=== PATIENT | female | born 1985 | race Caucasian/White ===

== ENCOUNTER 2017-04-26 23:19 | Emergency (ER) | payer SELFPAY ==
[~2017-04-26] VITALS: Ht 175.3 cm; Wt 94.7 kg
[~2017-04-26 23:19] MED LIST: GLYB5TAB3 PO; TRAM50 PO; VICO7.5T PO
[2017-04-26 23:32] VITALS: BP 150/94; PULSE 111; RESP 18; TEMP 98.2; O2SAT 97
[2017-04-26] MEDS ORDERED: SODIUM CHLOR 0.9% 1000 ML INJ 1,000 ML IV ONE (23:56)
[2017-04-27] MEDS ORDERED: KETOROLAC TROMETHAMINE 30 MG/ML (IVP) VIAL IV PUSH ONE
[2017-04-27] MEDS ORDERED: SODIUM CHLORIDE 0.9% FLUSH 10 ML FLUSH IVF PRN
[2017-04-27] MEDS ORDERED: METOCLOPRAMIDE HCL 10 MG/2 ML VIAL IV PUSH ONE
--- NOTE | 2017-04-27 | PD ---
HPI Chief Complaint: altered mental status Time Seen by Provider: 23:47 Travel History International Travel<30 days: No Contact w/Intl Traveler<30days: No Traveled to known affect area: No History of Present Illness HPI 31-year-old female with history of diabetes, depression, opiate abuse in recovery over the last 8 months, here with family for evaluation of an episode that occurred this evening with the patient was not acting like herself and not making sense. The patient had just returned from a group counseling/recovery meeting. Patient is now acting normally, however she is complaining of a headache that started about 30 minutes ago. Headache is mainly frontal and described as pressure. Onset was gradual. Pain is moderate. She is also complaining of feeling lightheaded/dizzy. She denies fevers, chills, cough, or recent illness. No neck stiffness. She denies illicit drug use. BGL at home was checked and was 315. Family reports that the patient has been under a lot of stress at home regarding her children and her children's father. PFSH Past Medical History Blood Disorders: No Anxiety: Yes Heart Rhythm Problems: No Cancer: No Cardiac Catheterization: No Cardiovascular Problems: Yes High Cholesterol: No Chemotherapy: No Congestive Heart Failure: Yes (PREECLAMPSIA) Diabetes: Yes Diminished Hearing: No Endocrine: No Genitourinary: No Headaches: Yes Hypertension: Yes Immune Disorder: No Implanted Vascular Access Dvce: No Musculoskeletal: No Neurologic: No Psychiatric: No Reproductive: No Respiratory: Yes Myocardial Infarction: No Radiation Therapy: No Thyroid Disease: No PNEUMOCCOCAL Vaccine (Year): 2 : 2 Para: 2 Tubal Ligation: Yes Past Surgical History Abdominal Surgery: Yes (APPY) AICD: No Appendectomy: Yes Arteriovenous Shunt: No Section: Yes (X 2 ) Coronary Artery Bypass Graft: No Gynecologic Surgery: Yes ( X 2) Insulin Pump: No Joint Replacement: No Oral Surgery: Yes (T & A) Pacemaker: No Tonsillectomy: Yes Other Surgery: Yes (LEFT ARM AND RIGHT 5th toe) Social History Alcohol Use: No Tobacco Use: No Substance Use: No Allergies-Medications (Allergen,Severity, Reaction): Coded Allergies: codeine (Unverified Allergy, Severe, HIVES, 02/15/17) states she can take codeine derivatives. Reported Meds & Prescriptions Reported Meds & Active Scripts Active Reported Zonisamide 100 Mg Cap 100 Mg PO HS Zonisamide 50 Mg Cap 50 Mg PO PM Fenofibrate 145 Mg Tab 145 Mg PO DAILY Dulera 120 Act Inh (Mometasone-Formoterol 120 Act Inh) 100-5 Mcg/Act Inh 2 Puff INH BID Gabapentin 300 Mg Cap 300 Mg PO TID PRN Effexor XR 24 HR (Venlafaxine HCl) 75 Mg Cap 150 Mg PO DAILY Apidra Inj (Insulin Glulisine Inj) 1,000 Unit/10 Ml Vial 17 Units SQ TID Lantus Inj (Insulin Glargine) 1,000 Unit/10 Ml Vial 8 Units SQ HS Review of Systems Except as stated in HPI: all other systems reviewed are Neg Physical Exam Narrative GENERAL: Well-developed, well-nourished, comfortable, no apparent distress. SKIN: Focused skin assessment warm/dry. No rash. HEAD: Atraumatic. Normocephalic. EYES: Pupils equal, round, 3 mm, reactive to light. EOMI. No scleral icterus. No injection or drainage. ENT: No nasal bleeding or discharge. Mucous membranes pink and moist. Bilateral tympanic members and external auditory canals are normal. NECK: Trachea midline. No JVD. No nuchal rigidity. CARDIOVASCULAR: Regular rate and rhythm. RESPIRATORY: No accessory muscle use. Clear to auscultation. Breath sounds equal bilaterally. GASTROINTESTINAL: Abdomen soft, non-tender, nondistended. Hepatic and splenic margins not palpable. MUSCULOSKELETAL: No obvious deformities. No clubbing. No cyanosis. No edema. NEUROLOGICAL: Awake and alert. No obvious cranial nerve deficits. Motor grossly within normal limits. Normal speech. PSYCHIATRIC: Appropriate mood and affect; insight and judgment normal. Data Data Last Documented VS Vital Signs Date Time Temp Pulse Resp B/P (MAP) Pulse Ox O2 Delivery O2 Flow Rate FiO2 04/27/17 01:15 87 18 119/82 (94) 99 Room Air 04/26/17 23:32 98.2 Orders Orders Complete Blood Count With Diff (04/26/17 23:56) Comprehensive Metabolic Panel (04/26/17 23:56) Beta Hydroxybutyrate (Acetone) (04/26/17 23:56) Urinalysis - C+S If Indicated (04/26/17 23:56) Ecg Monitoring (04/26/17 23:56) Iv Access Insert/Monitor (04/26/17 23:56) Oximetry (04/26/17 23:56) NPO (04/26/17 23:56) Sodium Chlor 0.9% 1000 Ml Inj (Ns 1000 M (04/26/17 23:56) Sodium Chloride 0.9% Flush (Ns Flush) (04/27/17 00:00) Beta Hcg (Quant/Titer) (04/26/17 23:56) Ct Brain W/O Iv Contrast(Rout) (04/26/17 ) Metoclopramide Inj (Reglan Inj) (04/27/17 00:00) Ketorolac Inj (Toradol Inj) (04/27/17 00:00) Drug Screen, Random Urine (04/26/17 23:56) Labs Laboratory Tests Test 04/27/17 00:05 04/27/17 00:25 Urine Color YELLOW Urine Turbidity SLIGHT Urine pH 6.0 Urine Specific [place] GREATER THAN 1.035 Urine Protein TRACE mg/dL Urine Glucose (UA) 1000 OR GREATER mg/dL Urine Ketones NEG mg/dL Urine Occult Blood LARGE Urine Nitrite NEG Urine Bilirubin NEG Urine Leukocyte Esterase NEG Urine RBC 25-49 /hpf Urine WBC 0-2 /hpf Urine Squamous Epithelial Cells > 8 /hpf Urine Amorphous Sediment MOD Urine Bacteria FEW /hpf Urine Mucus OCC /lpf Microscopic Urinalysis Comment CULT NOT INDICATED Urine Opiates Screen NEG Urine Barbiturates Screen NEG Urine Amphetamines Screen POS Urine Benzodiazepines Screen NEG Urine Cocaine Screen NEG Urine Cannabinoids Screen NEG White Blood Count 6.9 TH/MM3 Red Blood Count 4.80 MIL/MM3 Hemoglobin 14.1 GM/DL Hematocrit 41.0 % Mean Corpuscular Volume 85.5 FL Mean Corpuscular Hemoglobin 29.4 PG Mean Corpuscular Hemoglobin Concent 34.4 % Red Cell Distribution Width 12.6 % Platelet Count 360 TH/MM3 Mean Platelet Volume 7.8 FL Neutrophils (%) (Auto) 35.3 % Lymphocytes (%) (Auto) 54.8 % Monocytes (%) (Auto) 8.5 % Eosinophils (%) (Auto) 1.1 % Basophils (%) (Auto) 0.3 % Neutrophils # (Auto) 2.4 TH/MM3 Lymphocytes # (Auto) 3.8 TH/MM3 Monocytes # (Auto) 0.6 TH/MM3 Eosinophils # (Auto) 0.1 TH/MM3 Basophils # (Auto) 0.0 TH/MM3 CBC Comment DIFF FINAL Differential Comment Blood Urea Nitrogen 13 MG/DL Creatinine 0.63 MG/DL Random Glucose 240 MG/DL Total Protein 7.5 GM/DL Albumin 3.8 GM/DL Calcium Level 8.9 MG/DL Alkaline Phosphatase 100 U/L Aspartate Amino Transf (AST/SGOT) 9 U/L Alanine Aminotransferase (ALT/SGPT) 28 U/L Total Bilirubin 0.4 MG/DL Sodium Level 138 MEQ/L Potassium Level 3.5 MEQ/L Chloride Level 104 MEQ/L Carbon Dioxide Level 25.0 MEQ/L Anion Gap 9 MEQ/L Estimat Glomerular Filtration Rate 110 ML/MIN Human Chorionic Gonadotropin, Quant LESS THAN 1 MIU/ML B-Hydroxybutyrate 0.08 MMOL/L [facility] Medical Decision Making Medical Screen Exam Complete: Yes Emergency Medical Condition: Yes Medical Record Reviewed: Yes Differential Diagnosis Acute psychotic episode, intracranial abnormality, DKA, metabolic abnormality, UTI, meningitis/encephalitis/SAH unlikely Narrative Course Vital signs reviewed. Initial heart rate was 111 and improved to 82 after a liter of normal saline. Blood pressure is 150/94. Pulse ox is 97% on room air. Oral temp is 98.2F. CBC shows WBC 6.9, hemoglobin 14.1, hematocrit 41, platelets 360, lymphocytes 54.8%, monocytes 8.5%. CMP is remarkable for random glucose 240, otherwise unremarkable. Beta hCG is negative. UA shows 1000 or greater glucose, large occult blood, 25-50 RBCs, few bacteria, negative nitrites, negative leukocyte esterase, not suggestive of UTI. The patient is currently on her menstrual period. Urine drug screen is positive for amphetamines. The patient reports that she took a dose of Adderall about a week ago which was from a leftover prescription of hers. Patient was given a liter of normal saline, IV Toradol, and IV Reglan, and on reassessment she states her headache is resolved. She was sleeping comfortably. CT head: No acute intracranial disease. Again the patient is feeling a lot better and no longer has a headache. She is acting like her normal self. She was made aware of all findings. She did not want me to let her family know about the positive amphetamines in her urine. I stressed the importance of follow-up regarding the leukocytosis. I will give her the information to the [facility] to follow-up with regarding this. She is stable for discharge home with outpatient follow-up. She was informed on when to return to the emergency department. She verbalizes understanding and agreement with plan. Diagnosis Primary Impression: Altered mental status Qualified Codes: R40.4 - Transient alteration of awareness Additional Impressions: Headache Qualified Codes: R51 - Headache Lymphocytosis Hyperglycemia Referrals: [facility] 3 days Additional Instructions: Follow-up with a primary care physician this week. Return to the emergency department for worsening symptoms or any other concerns. Disposition: 01 DISCHARGE HOME Condition: Stable Maulik Wilhelm MD Apr 27, 2017 00:00
[2017-04-27 00:15] VITALS: BP 136/83; PULSE 85; RESP 18; O2SAT 97
[2017-04-27 01:04] LABS: AUTOMATED NEUTROPHIL # 2.4 TH/MM3 (1.8-7.7); BASOPHIL % 0.3 % (0.0-2.0); EOSINOPHIL # 0.1 TH/MM3 (0-0.4); EOSINOPHIL % 1.1 % (0.0-4.0); HEMOGLOBIN 14.1 GM/DL (11.6-15.3); LYMPH % 54.8 % (9.0-44.0); LYMPHOCYTE # 3.8 TH/MM3 (1.0-4.8); MEAN CELL VOLUME 85.5 FL (80.0-100.0); MEAN CORPUSCULAR HEMOGLOBIN 29.4 PG (27.0-34.0); MEAN CORPUSCULAR HGB CONC 34.4 % (32.0-36.0); MEAN PLATELET VOLUME 7.8 FL (7.0-11.0); MONO % 8.5 % (0.0-8.0); MONOCYTE # 0.6 TH/MM3 (0-0.9); NEUT % 35.3 % (16.0-70.0); PLATELET COUNT 360 TH/MM3 (150-450); RED CELL DISTRIBUTION WIDTH 12.6 % (11.6-17.2); WHITE BLOOD COUNT 6.9 TH/MM3 (4.0-11.0)
[2017-04-27 01:04] LABS: BILIRUBIN, URINE NEG (NEG); BLOOD, URINE LARGE (NEG); GLUCOSE,URINE 1000 OR GREATER mg/dL (NEG); KETONE, URINE NEG (NEG); NITRITE,URINE NEG (NEG); URINE LEUKOCYTE ESTERASE NEG (NEG)
[2017-04-27 01:12] LABS: CHLORIDE 104 MEQ/L (98-107); SODIUM (NA) 138 MEQ/L (136-145)
[2017-04-27 01:14] LABS: CALCIUM 8.9 MG/DL (8.5-10.1)
[2017-04-27 01:15] VITALS: BP 119/82; PULSE 87; RESP 18; O2SAT 99
[2017-04-27 01:15] LABS: ALBUMIN 3.8 GM/DL (3.4-5.0); BLOOD UREA NITROGEN 13 MG/DL (7-18); GLUCOSE,RANDOM 240 MG/DL (74-106)
[2017-04-27 01:18] LABS: ALT (GPT) 28 U/L (10-53); AST (GOT) 9 U/L (15-37); CREATININE 0.63 MG/DL (0.50-1.00); GLOMERULAR FILTRATION RATE 110 ML/MIN (>89)
[2017-04-27 01:19] LABS: TOTAL BILIRUBIN ADULT 0.4 MG/DL (0.2-1.0)
[2017-04-27 01:20] LABS: TOTAL PROTEIN 7.5 GM/DL (6.4-8.2)
[2017-04-27 01:21] LABS: ALKALINE PHOSPHATASE 100 U/L (45-117)
[2017-04-27 01:21] LABS: SQUAMOUS EPITHELIAL CELL URINE > 8 /hpf (0-5); URINE COLOR YELLOW (YELLW/STRAW)
[2017-04-27 01:22] LABS: BACTERIA, URINE FEW /hpf; MUCUS URINE OCC /lpf (OCC); WBC, URINE 0-2 /hpf (0-5)
[2017-04-27 01:23] LABS: AMORPHOUS SEDIMENT, URINE MOD
[2017-04-27] MEDS ORDERED: GABA300C5 PO (01:32)
[2017-04-27] MEDS ORDERED: APIDINJ SQ (01:32)
[2017-04-27] MEDS ORDERED: VENL75XR PO (01:32)
[2017-04-27] MEDS ORDERED: FENO145T2 PO (01:32)
[2017-04-27] MEDS ORDERED: DULE100A INH (01:32)
[2017-04-27] MEDS ORDERED: LANTUS2P SQ (01:32)
[2017-04-27] MEDS ORDERED: ZONI50CA2 PO (01:32)
[2017-04-27] MEDS ORDERED: ZONI100C2 PO (01:32)
--- NOTE | 2017-04-27 02:21 | RADRPT ---
EXAM DATE/TIME: 04/27/2017 01:41 [place] COMPARISON: CT BRAIN W/O CONTRAST, August 04, 2011, 16:14. INDICATIONS : Cephalgia. Altered mental status. RADIATION DOSE: 56.26 CTDIvol (mGy) MEDICAL HISTORY : Hypertension. Diabetes mellitus type 2. SURGICAL HISTORY : None. ENCOUNTER: Initial ACUITY: 1 day PAIN SCALE: 6/10 LOCATION: frontal TECHNIQUE: Multiple contiguous axial images were obtained of the head. Using automated exposure control and adj ustment of the mA and/or kV according to patient size, radiation dose was kept as low as reasonably a chievable to obtain optimal diagnostic quality images. DICOM format image data is available electro nically for review and comparison. FINDINGS: CEREBRUM: The ventricles are normal for age. No evidence of midline shift, mass lesion, hemorrhage or acute in farction. No extra-axial fluid collections are seen. POSTERIOR FOSSA: The cerebellum and brainstem are intact. The 4th ventricle is midline. The cerebellopontine angle i s unremarkable. EXTRACRANIAL: The visualized portion of the orbits is intact. SKULL: The calvaria is intact. No evidence of skull fracture. CONCLUSION: No acute intracranial disease. Stephen Ryan MD on April 27, 2017 at 2:19 Board Certified Radiologist. This report was verified electronically.
[2017-04-27 02:40] VITALS: BP 110/74; PULSE 78; RESP 18; O2SAT 98
== END 2017-04-27 02:50 | disposition home or self-care (01) ==
LOC: PHED 23:19
DX: R51 Headache (principal); D72.820 Lymphocytosis (symptomatic); E11.65 Type 2 diabetes mellitus with hyperglycemia; Z79.4 Long term (current) use of insulin; Z79.899 Other long term (current) drug therapy
CPT/HCPCS: 70450; 80053; 80307; 81001; 82010; 84702; 85025; 96361; 96374; 96375; 99285; J1885; J2765; J7030

== ENCOUNTER 2017-08-22 13:50 | Emergency (ER) | payer BC ==
[~2017-08-22 13:50] MED LIST changes: +APIDINJ SQ; +DULE100A INH; +FENO145T2 PO; +GABA300C5 PO; -GLYB5TAB3 PO; +LANTUS2P SQ; -TRAM50 PO; +VENL75XR PO; -VICO7.5T PO; +ZONI100C2 PO; +ZONI50CA2 PO
[2017-08-22 13:52] VITALS: BP 162/75; PULSE 91; RESP 18; TEMP 96.8; O2SAT 98
[2017-08-22] MEDS ORDERED: DICL75TA PO (15:08)
--- NOTE | 2017-08-22 15:13 | PD ---
HPI Chief Complaint: Numbness/Tingling Time Seen by Provider: 15:07 Travel History International Travel<30 days: No Contact w/Intl Traveler<30days: No Traveled to known affect area: No History of Present Illness HPI 32-year-old female presents for evaluation of one day history of left arm paresthesias. Symptoms started this morning. She reports a tingling/sharp pain that radiates from the left hand/fingers of the left arm. Pain is made worse with certain movements of the left hand such as opening a door, supination. She denies any injuries. She denies sleeping on her left side. She does report a very remote history of left radial head fracture. Denies any focal weakness. Denies any recent strenuous activity. She reports that she gets similar sensations in her lower extremities on a chronic basis for which she takes gabapentin. She has no other complaints at this time. PFSH Past Medical History Blood Disorders: No Anxiety: Yes Heart Rhythm Problems: No Cancer: No Cardiac Catheterization: No Cardiovascular Problems: Yes High Cholesterol: No Chemotherapy: No Congestive Heart Failure: Yes (PREECLAMPSIA) Diabetes: Yes Diminished Hearing: No Endocrine: No Genitourinary: No Headaches: Yes Hypertension: Yes Immune Disorder: No Implanted Vascular Access Dvce: No Musculoskeletal: No Neurologic: No Psychiatric: No Reproductive: No Respiratory: Yes Immunizations Current: Yes Myocardial Infarction: No Radiation Therapy: No Thyroid Disease: No PNEUMOCCOCAL Vaccine (Year): 2 ?: Not LMP: CURRENT : 2 Para: 2 Tubal Ligation: Yes Past Surgical History Abdominal Surgery: Yes (APPY) AICD: No Appendectomy: Yes Arteriovenous Shunt: No Section: Yes (X 2 ) Cholecystectomy: Yes Coronary Artery Bypass Graft: No Gynecologic Surgery: Yes ( X 2) Insulin Pump: No Joint Replacement: No Oral Surgery: Yes (T & A) Pacemaker: No Tonsillectomy: Yes Other Surgery: Yes (LEFT ARM AND RIGHT 5th toe) Social History Alcohol Use: No Tobacco Use: No Substance Use: Yes (OFF PAIN MEDS SINCE 08/31/16) Allergies-Medications (Allergen,Severity, Reaction): Coded Allergies: codeine (Unverified Allergy, Severe, HIVES, 08/22/17) states she can take codeine derivatives. Reported Meds & Prescriptions Reported Meds & Active Scripts Active Diclofenac Sodium DR (Diclofenac Sodium) 75 Mg Tabdr 75 Mg PO BID 10 Days Reported Fenofibrate 145 Mg Tab 145 Mg PO DAILY Dulera 120 Act Inh (Mometasone-Formoterol 120 Act Inh) 100-5 Mcg/Act Inh 2 Puff INH BID Gabapentin 300 Mg Cap 100 Mg PO TID PRN Apidra Inj (Insulin Glulisine Inj) 1,000 Unit/10 Ml Vial 12 Units SQ TID Lantus Inj (Insulin Glargine) 1,000 Unit/10 Ml Vial 37 Units SQ HS Review of Systems Except as stated in HPI: all other systems reviewed are Neg Physical Exam Narrative GENERAL: Well-developed well-nourished female in no acute distress SKIN: Warm and dry. HEAD: Atraumatic. Normocephalic. EYES: Pupils equal and round. No scleral icterus. No injection or drainage. ENT: No nasal bleeding or discharge. Mucous membranes pink and moist. NECK: Trachea midline. No JVD. CARDIOVASCULAR: Regular rate and rhythm. No murmur appreciated. RESPIRATORY: No accessory muscle use. Clear to auscultation. Breath sounds equal bilaterally. MUSCULOSKELETAL: No obvious deformities. The patient has normal licensed appraiser strength, 5 out of 5 muscle strength in left wrist flexion and extension, full range of motion of the upper extremities. There is no upper extremity edema. 2+ radial pulse, capillary refill less than 2 seconds in all digits of left hand. NEUROLOGICAL: Awake and alert. No obvious cranial nerve deficits. Motor grossly within normal limits. Normal speech. Distal sensation is preserved in the left median, radial and ulnar nerve distributions. Data Data Last Documented VS Vital Signs Date Time Temp Pulse Resp B/P (MAP) Pulse Ox O2 Delivery O2 Flow Rate FiO2 08/22/17 13:52 96.8 91 18 162/75 (104) 98 Orders Orders Ed Discharge Order (08/22/17 15:09) [facility] Medical Decision Making Medical Screen Exam Complete: Yes Emergency Medical Condition: Yes Medical Record Reviewed: Yes Differential Diagnosis Paresthesias, brachioplexopathy, cervical radiculopathy, median nerve mono neuropathy, ulnar nerve mono neuropathy, radial nerve mono neuropathy Narrative Course The patient's symptoms are nonspecific and that they affect her whole left hand and her not really distributed in a specific peripheral nerve distribution. Her symptoms did just start today. She has no weakness that would warrant emergent imaging. The plan at this time and treat her symptomatically with a short course of NSAIDs, she also takes gabapentin already. Recommended follow- up with primary care physician in one to 2 weeks. If symptoms persist outpatient cervical imaging versus nerve conduction studies may be warranted. Diagnosis Primary Impression: Paresthesia of left upper extremity Additional Instructions: Medication as needed, take with meals. Gabapentin as previously prescribed. Follow-up with primary care physician in one to 2 weeks. If symptoms persist outpatient imaging versus nerve conduction studies may be warranted. Med/Other Pt SpecificInfo: Prescription(s) given Scripts Diclofenac Sodium (Diclofenac Sodium DR) 75 Mg Tabdr 75 MG PO BID for 10 Days, #20 TAB 0 Refills Prov: Isauro Fong MD 08/22/17 Disposition: 01 DISCHARGE HOME Condition: Stable Kayden Maldonado Aug 22, 2017 15:13
== END 2017-08-22 15:24 | disposition home or self-care (01) ==
LOC: NEPK 13:50
DX: R20.2 Paresthesia of skin (principal); I10 Essential (primary) hypertension; E11.9 Type 2 diabetes mellitus without complications; F41.9 Anxiety disorder, unspecified; Z88.5 Allergy status to narcotic agent; Z79.4 Long term (current) use of insulin; Z79.899 Other long term (current) drug therapy
CPT/HCPCS: 99283

== ENCOUNTER 2017-11-19 14:12 | Emergency (ER) | END 2017-11-19 17:55 | disposition home or self-care (01) | DX: M25.571 Pain in right ankle and joints of right foot (principal); E11.9 Type 2 diabetes mellitus without complications; I10 Essential (primary) hypertension; M77.31 Calcaneal spur, right foot ==